=== PATIENT | female | born 1955 | race African-American/Black ===

== ENCOUNTER 2016-10-22 10:29 | Emergency (ER) | payer MEDICARE, MEDICAID ==
[2016-10-22] MEDS ORDERED: Morphine Sulfate 2 MG/ML SYRINGE ONE (10:51)
[2016-10-22] MEDS ORDERED: Promethazine HCl 25 MG/ML VIAL ONE (10:51)
[2016-10-22] MEDS ORDERED: cloNIDine HCl 0.1 MG TAB ONE (11:28)
== END 2016-10-22 11:46 | disposition home or self-care (01) ==
LOC: BURERS 10:29
DX: N64.4 Mastodynia (principal); C50.911 Malignant neoplasm of unspecified site of right female breast; I10 Essential (primary) hypertension; Z79.899 Other long term (current) drug therapy
CPT/HCPCS: 96372; J2270; J2550

== ENCOUNTER 2016-11-05 10:48 | Emergency (ER) | payer MEDICARE, MEDICAID ==
[2016-11-05] MEDS ORDERED: Nitroglycerin 2% Ointment 1 INCH/1 GM Packet ONE (11:02)
[2016-11-05] MEDS ORDERED: Nitroglycerin 0.4 MG TAB (25 Tab Bottle) ONE (11:02)
[2016-11-05] MEDS ORDERED: Ondansetron HCl/PF 4 MG/2 ML Vial ONE (11:02)
[2016-11-05] MEDS ORDERED: Metoprolol Tartrate 5 MG/5 ML VIAL ONE ×3 (11:12→12:17)
[2016-11-05 11:29] LABS: ALT (SGPT) 40 U/L (0-55); AST (SGOT) 31 U/L (5-34); Alkaline Phosphatase 125 U/L (40-150); Anion Gap 14 mmol/L (10-20); BUN (Urea Nitrogen) 14 mg/dL (9.8-20.1); Bilirubin, Total 0.9 mg/dL (0.2-1.2); Calc. Creatinine Clearance 0 mL/min (70-130); Calcium 9.2 mg/dL (7.8-10.44); Carbon Dioxide 26 mmol/L (23-31); Chloride 106 mmol/L (98-107); Estimated GFR-MDRD 58; Globulin 3.4 g/dL (2.4-3.5); Lipase 13 U/L (8-78); Protein, Total 7.2 g/dL (5.8-8.1)
[2016-11-05 11:30] LABS: Troponin I 0.011 ng/mL (< 0.028)
[2016-11-05 11:34] LABS: Mean Platelet Volume 7.6 fL (7.4-10.4); Red Blood Cell (RBC) Count 4.98 mill/uL (4.20-5.40); White Blood Cell (WBC) Count 11.3 thou/uL (4.8-10.8)
[2016-11-05 11:45] LABS: Neutrophil 43 % (42-75)
[2016-11-05] MEDS ORDERED: Morphine Sulfate 2 MG/ML SYRINGE ONE (11:53)
[2016-11-05] MEDS ORDERED: Famotidine In NaCl 20 mg/50 ml Premix Bag ONE (11:53)
[2016-11-05] MEDS ORDERED: cloNIDine HCl 0.1 MG TAB ONE (12:13)
[2016-11-05] MEDS ORDERED: Potassium Chloride 20 MEQ TAB ONE (12:13)
--- NOTE | 2016-11-05 19:44 | RAD ---
PORTABLE CHEST 11/05/16 An AP portable film at 1105 is compared with a 01/14/13 study done at [facility]. The heart is mildly enlarged but no more so than before. There is no vascular congestion, edema or p leural effusion. No focal pulmonary infiltrate was seen. The trachea is midline. IMPRESSION: Mild cardiomegaly but no acute findings. POS: HOME
== END 2016-11-05 12:36 | disposition short-term general hospital (02) ==
LOC: BURERS 10:48
DX: I20.0 Unstable angina (principal); I10 Essential (primary) hypertension; Z79.899 Other long term (current) drug therapy
CPT/HCPCS: 71010; 80053; 82553; 83690; 83880; 84484; 85025; 93005; 94760; 96361; 96365; 96375; 96376; J2270; J2405

== ENCOUNTER 2017-02-03 10:31 | Emergency (ER) | payer MEDICARE, MEDICAID | END 2017-02-03 11:17 | disposition home or self-care (01) | LOC: BURERS 10:31 | DX: N64.4 Mastodynia (principal); I10 Essential (primary) hypertension; F32.9 Major depressive disorder, single episode, unspecified; Z79.899 Other long term (current) drug therapy ==

== ENCOUNTER 2018-02-28 11:19 | Emergency (ER) | payer MEDICAID, MEDICARE | END 2018-02-28 11:51 | disposition home or self-care (01) | LOC: BURERS 11:19 | DX: M25.562 Pain in left knee (principal); M25.561 Pain in right knee; I10 Essential (primary) hypertension; Z85.3 Personal history of malignant neoplasm of breast; Z79.82 Long term (current) use of aspirin; Z79.899 Other long term (current) drug therapy | CPT/HCPCS: 99283 ==

== ENCOUNTER 2019-02-27 13:29 | Emergency (ER) | payer MEDICARE, MEDICAID ==
--- NOTE | 2019-02-27 17:11 | RAD ---
LEFT KNEE FOUR VIEWS: 02/27/19 No fracture or joint effusion was seen. There is slight medial joint space narrowing and osteophytes present. More prominent osteophytes are seen in the patellofemoral joint. IMPRESSION: Osteoarthritis. No acute traumatic findings. POS: HOME
== END 2019-02-27 14:30 | disposition home or self-care (01) ==
LOC: BURERS 13:29
DX: S80.212A Abrasion, left knee, initial encounter (principal); I10 Essential (primary) hypertension; F32.9 Major depressive disorder, single episode, unspecified; Z79.82 Long term (current) use of aspirin; Z86.73 Personal history of transient ischemic attack (TIA), and cerebral infarction without residual deficits; Z79.899 Other long term (current) drug therapy; Z79.891 Long term (current) use of opiate analgesic; W19.XXXA Unspecified fall, initial encounter

== ENCOUNTER 2019-05-29 12:38 | Emergency (ER) | payer MEDICARE, MEDICAID ==
[2019-05-29] MEDS ORDERED: Doxepin HCl 25 MG CAP ONE (13:14)
[2019-05-29 13:25] LABS: ALT (SGPT) 18 U/L (8-55); AST (SGOT) 18 U/L (5-34); Alkaline Phosphatase 120 U/L (40-150); Anion Gap 13 mmol/L (10-20); BUN (Urea Nitrogen) 10 mg/dL (9.8-20.1); Bilirubin, Total 0.9 mg/dL (0.2-1.2); Calc. Creatinine Clearance 0 mL/min (70-130); Calcium 9.3 mg/dL (7.8-10.44); Carbon Dioxide 26 mmol/L (23-31); Chloride 107 mmol/L (98-107); Estimated GFR-MDRD 44; Globulin 2.9 g/dL (2.4-3.5); Glucose 146 mg/dL (80-115); Hemoglobin 13.1 g/dL (12.0-16.0); MDiff Complete? YES; Mean Corpuscular HGB CONC 32.1 g/dL (32.0-36.0); Mean Corpuscular Hemoglobin 27.1 pg (27.0-31.0); Mean Corpuscular Volume 84.6 fL (78.0-98.0); Platelet Count 224 thou/uL (130-400); Protein, Total 6.9 g/dL (6.0-8.3); RBC Distribution Width 15.4 % (11.5-14.5); Red Blood Cell (RBC) Count 4.82 mill/uL (4.20-5.40); Sodium 143 mmol/L (136-145)
[2019-05-29 13:26] LABS: Band 1 % (5-11); Eosinophils 1 % (0-10); Lymphocytes 67 % (21-51); Monocytes 2 % (0-10); Neutrophil 29 % (42-75)
[2019-05-29 13:27] LABS: White Blood Cell (WBC) Count 18.1 thou/uL (4.8-10.8)
[2019-05-29] MEDS ORDERED: Potassium Chloride 20 MEQ TAB ONE (13:36)
== END 2019-05-29 13:39 | disposition home or self-care (01) ==
LOC: BURERS 12:38
DX: L25.9 Unspecified contact dermatitis, unspecified cause (principal); E87.6 Hypokalemia; I10 Essential (primary) hypertension; F32.9 Major depressive disorder, single episode, unspecified; Z86.73 Personal history of transient ischemic attack (TIA), and cerebral infarction without residual deficits; Z79.899 Other long term (current) drug therapy
CPT/HCPCS: 36415; 80053; 85025; 99283

== ENCOUNTER 2019-06-07 17:16 | Emergency (ER) | payer MEDICARE, MEDICAID ==
--- NOTE | 2019-06-07 21:00 | RAD ---
RIGHT ANKLE THREE VIEWS: 06/07/19 No acute fracture was seen. The ankle mortise appears intact. A calcaneal spur is present. There is some ossification and irregularity at the insertion of the Achilles tendon. IMPRESSION: No acute findings. POS: HOME
== END 2019-06-07 19:05 | disposition home or self-care (01) ==
LOC: BURERS 17:16
DX: S90.31XA Contusion of right foot, initial encounter (principal); I10 Essential (primary) hypertension; Z85.59 Personal history of malignant neoplasm of other urinary tract organ; Z86.73 Personal history of transient ischemic attack (TIA), and cerebral infarction without residual deficits; W22.8XXA Striking against or struck by other objects, initial encounter

== ENCOUNTER 2019-07-28 10:28 | Emergency (ER) | payer MEDICARE, MEDICAID ==
[2019-07-28] MEDS ORDERED: Nitroglycerin 0.4 MG TAB 1 EACH ONE (10:53)
[2019-07-28] MEDS ORDERED: Metoprolol Tartrate 5 MG/5 ML VIAL ONE (10:53)
[2019-07-28] MEDS ORDERED: Aspirin Chewable 81 MG TAB ONE (10:53)
[2019-07-28 11:06] LABS: Hemoglobin 13.9 g/dL (12.0-16.0); Mean Corpuscular Hemoglobin 27.5 pg (27.0-31.0); Mean Corpuscular Volume 85.9 fL (78.0-98.0); Mean Platelet Volume 7.8 fL (7.4-10.4); Platelet Count 202 thou/uL (130-400); RBC Distribution Width 15.2 % (11.5-14.5); Red Blood Cell (RBC) Count 5.04 mill/uL (4.20-5.40); White Blood Cell (WBC) Count 21.2 thou/uL (4.8-10.8)
[2019-07-28 11:14] LABS: ALT (SGPT) 52 U/L (8-55); AST (SGOT) 29 U/L (5-34); Albumin 4.3 g/dL (3.4-4.8); Alkaline Phosphatase 168 U/L (40-110); Anion Gap 16 mmol/L (10-20); BUN (Urea Nitrogen) 13 mg/dL (9.8-20.1); Bilirubin, Total 0.8 mg/dL (0.2-1.2); Calc. Creatinine Clearance 0 mL/min (70-130); Calcium 9.5 mg/dL (7.8-10.44); Carbon Dioxide 26 mmol/L (23-31); Chloride 107 mmol/L (98-107); Estimated GFR-MDRD 59; Globulin 3.1 g/dL (2.4-3.5); Glucose 100 mg/dL (80-115); Lipase 12 U/L (8-78); Potassium 3.3 mmol/L (3.5-5.1); Protein, Total 7.4 g/dL (6.0-8.3); Sodium 146 mmol/L (136-145)
[2019-07-28] MEDS ORDERED: Nitroglycerin 50 MG/250 ML BOT 250 ML ONE (11:19)
[2019-07-28 11:20] LABS: Band 2 % (5-11); Eosinophils 1 % (0-10); Lymphocytes 43 % (21-51); MDiff Complete? YES; Monocytes 17 % (0-10); Neutrophil 20 % (42-75); Reactive Lymphocytes 16 % (0-10)
[2019-07-28 11:39] LABS: Bilirubin Negative (Negative); Blood, Urine Negative (Negative); Clarity Slightly Cloudy (Clear); Glucose, Urine (Dipstick) Negative (Negative); Leukocyte Negative (Negative); Nitrite Negative (Negative); Protein, Urine (Dipstick) Negative (Neg-Trace)
[2019-07-28] MEDS ORDERED: Furosemide 40 MG/4 ML VIAL ONE (11:47)
--- NOTE | 2019-07-28 15:54 | RAD ---
PORTABLE CHEST: 07/28/19 An AP portable film at 1053 is compared with a 12/16/17 study. The heart is borderline in size. There appears to be some mild edema and congestion of vessels. There are probably some small pleural effusions. The trachea is midline. IMPRESSION: Mild congestion and edema. POS: HOME
== END 2019-07-28 13:40 | disposition short-term general hospital (02) ==
LOC: BURERS 10:28
DX: I10 Essential (primary) hypertension (principal); J81.1 Chronic pulmonary edema; F32.9 Major depressive disorder, single episode, unspecified; Z79.82 Long term (current) use of aspirin; Z79.899 Other long term (current) drug therapy; Z86.73 Personal history of transient ischemic attack (TIA), and cerebral infarction without residual deficits; Z85.3 Personal history of malignant neoplasm of breast
CPT/HCPCS: 36415; 71045; 80053; 81003; 83605; 83690; 83880; 84484; 85025; 87040; 93005; 94760; 96365; 96375; 96376; J1940

== ENCOUNTER 2019-10-20 10:10 | Emergency (ER) | payer MEDICARE, MEDICAID ==
[2019-10-20 11:37] LABS: Bilirubin Negative (Negative); Blood, Urine Negative (Negative); Clarity Clear (Clear); Glucose, Urine (Dipstick) Negative (Negative); Leukocyte Negative (Negative); Nitrite Negative (Negative); Protein, Urine (Dipstick) Negative (Neg-Trace)
--- NOTE | 2019-10-20 23:50 | CT ---
CT OF THE BRAIN WITHOUT CONTRAST: 10/20/[address] of the brain was done for evaluation following trauma. The ventricles are normal in size an d show no shift. No intracranial bleeding or extra-axial hematoma was seen. A patchy low density area in the right frontal lobe is most likely chronic ischemic change as it was seen on a prior MRI. It i s certainly not recent. No masses, edema or definite acute stroke was found. IMPRESSION: 1. No acute intracranial findings. 2. Old ischemic changes in the right frontal lobe. POS: HOME
== END 2019-10-20 11:43 | disposition home or self-care (01) ==
LOC: BURERS 10:10
DX: G31.9 Degenerative disease of nervous system, unspecified (principal); I10 Essential (primary) hypertension; Z86.73 Personal history of transient ischemic attack (TIA), and cerebral infarction without residual deficits; F41.9 Anxiety disorder, unspecified; F32.9 Major depressive disorder, single episode, unspecified; Z79.899 Other long term (current) drug therapy; Z79.02 Long term (current) use of antithrombotics/antiplatelets; W19.XXXA Unspecified fall, initial encounter
CPT/HCPCS: 70450; 81003

== ENCOUNTER 2020-04-19 13:00 | Emergency (ER) | payer MEDICARE, MEDICAID | END 2020-04-19 13:57 | disposition home or self-care (01) | LOC: BURERS 13:00 | DX: I10 Essential (primary) hypertension (principal); F41.9 Anxiety disorder, unspecified; C91.10 Chronic lymphocytic leukemia of B-cell type not having achieved remission; F32.9 Major depressive disorder, single episode, unspecified; Z86.73 Personal history of transient ischemic attack (TIA), and cerebral infarction without residual deficits; Z79.899 Other long term (current) drug therapy | CPT/HCPCS: 99283 ==

== ENCOUNTER 2020-05-09 10:11 | Emergency (ER) | payer MEDICARE, MEDICAID ==
[2020-05-09 11:04] LABS: Bilirubin Negative (Negative); Blood, Urine Negative (Negative); Clarity Clear (Clear); Glucose, Urine (Dipstick) Negative (Negative); Ketone, Urine Negative (Negative); Leukocyte Negative (Negative); Nitrite Negative (Negative); Protein, Urine (Dipstick) Negative (Neg-Trace); Specific Gravity, Urine 1.015 (1.005-1.030)
--- NOTE | 2020-05-09 13:15 | RAD ---
PORTABLE CHEST: Date: 05/09/2020 An AP portable film at 1112 hours is compared with an 07/28/2019 study. The heart is borderline in size, but no different than before. There is no vascular congestion, edema , or pleural effusion. The lungs are clear and the trachea is midline. IMPRESSION: No acute thoracic findings. POS: HOME
== END 2020-05-09 11:32 | disposition home or self-care (01) ==
LOC: BURERS 10:11
DX: R07.89 Other chest pain (principal); I10 Essential (primary) hypertension; F41.9 Anxiety disorder, unspecified; F32.9 Major depressive disorder, single episode, unspecified; Z86.73 Personal history of transient ischemic attack (TIA), and cerebral infarction without residual deficits; Z79.899 Other long term (current) drug therapy
CPT/HCPCS: 71045; 81003

== ENCOUNTER 2020-12-03 15:19 | Emergency (ER) | payer MEDICARE, MEDICAID ==
[2020-12-03 16:07] LABS: Hemoglobin 10.7 g/dL (12.0-16.0); Mean Corpuscular HGB CONC 31.8 g/dL (32.0-36.0); Mean Corpuscular Hemoglobin 28.2 pg (27.0-31.0); Mean Corpuscular Volume 88.6 fL (78.0-98.0); Mean Platelet Volume 7.8 fL (7.4-10.4); Platelet Count 148 thou/uL (130-400); RBC Distribution Width 18.5 % (11.5-14.5); Red Blood Cell (RBC) Count 3.81 mill/uL (4.20-5.40); White Blood Cell (WBC) Count 73.7 thou/uL (4.8-10.8)
[2020-12-03 16:24] LABS: ALT (SGPT) 13 U/L (8-55); AST (SGOT) 12 U/L (5-34); Albumin 3.8 g/dL (3.4-4.8); Alkaline Phosphatase 123 U/L (40-110); Anion Gap 15 mmol/L (10-20); BUN (Urea Nitrogen) 20 mg/dL (9.8-20.1); Bilirubin, Total 0.6 mg/dL (0.2-1.2); Calc. Creatinine Clearance 0 mL/min (70-130); Carbon Dioxide 25 mmol/L (23-31); Chloride 108 mmol/L (98-107); Globulin 2.9 g/dL (2.4-3.5); Glucose 107 mg/dL (80-115); Potassium 4.3 mmol/L (3.5-5.1); Protein, Total 6.7 g/dL (5.8-8.1); Sodium 144 mmol/L (136-145)
[2020-12-03 16:52] LABS: MDiff Complete? YES; Manual Diff?? YES
[2020-12-03 16:53] LABS: Band 1 % (5-11); Eosinophils 2 % (0-10); Lymphocytes 67 % (21-51); Monocytes 5 % (0-10); Neutrophil 9 % (42-75)
[2020-12-03 16:54] LABS: Reflex for Review?? YES
[2020-12-03] MEDS ORDERED: cefTRIAXone\\ROCEPHIN 2 GM VIAL ONE (16:58)
== END 2020-12-03 17:03 | disposition home or self-care (01) ==
LOC: BURERS 15:19
DX: J06.9 Acute upper respiratory infection, unspecified (principal); J45.909 Unspecified asthma, uncomplicated; C91.10 Chronic lymphocytic leukemia of B-cell type not having achieved remission; I10 Essential (primary) hypertension; Z79.899 Other long term (current) drug therapy
CPT/HCPCS: 36415; 71045; 80053; 83880; 84484; 85025; 85060; 87040; 93005; 94640; 94760; 96374; J0696; J7620

== ENCOUNTER 2020-12-30 15:42 | Emergency (ER) | payer MEDICARE, MEDICAID ==
[2020-12-30 16:35] LABS: Bilirubin Negative (Negative); Blood, Urine Negative (Negative); Clarity Clear (Clear); Glucose, Urine (Dipstick) Negative (Negative); Ketone, Urine Negative (Negative); Leukocyte Negative (Negative); Nitrite Negative (Negative); Protein, Urine (Dipstick) Negative (Neg-Trace); Specific Gravity, Urine 1.015 (1.005-1.030)
[2020-12-30] MEDS ORDERED: cloNIDine 0.1 MG TAB ONE (17:03)
[2020-12-30] MEDS ORDERED: Acetaminophen 500 MG TAB ONE (17:03)
== END 2020-12-30 17:13 | disposition home or self-care (01) ==
LOC: BURERS 15:42
DX: I10 Essential (primary) hypertension (principal); K59.00 Constipation, unspecified; Z86.73 Personal history of transient ischemic attack (TIA), and cerebral infarction without residual deficits; Z79.899 Other long term (current) drug therapy
CPT/HCPCS: 81003; 99284

== ENCOUNTER 2021-01-31 07:52 | Emergency (ER) | payer MEDICARE, MEDICAID | END 2021-01-31 08:11 | disposition left against medical advice (07) | LOC: BURERS 07:52 | DX: Z53.21 Procedure and treatment not carried out due to patient leaving prior to being seen by health care provider (principal) ==

== ENCOUNTER 2021-02-09 08:24 | Emergency (ER) | payer MEDICARE, MEDICAID ==
[2021-02-09] MEDS ORDERED: methylPREDNISolone Sod Succ/PF 125 MG/2 ML VIAL ONE (08:48)
== END 2021-02-09 09:00 | disposition home or self-care (01) ==
LOC: BURERS 08:24
DX: M54.42 Lumbago with sciatica, left side (principal); M54.41 Lumbago with sciatica, right side; I10 Essential (primary) hypertension; M79.7 Fibromyalgia
CPT/HCPCS: 96372; 99283; J2930

== ENCOUNTER 2021-03-22 08:23 | Emergency (ER) | payer MEDICARE, MEDICAID ==
[2021-03-22] MEDS ORDERED: HYDROcodone/Acetaminophen 10/325 mg Tablet ONE (09:04)
[2021-03-22] MEDS ORDERED: predniSONE 20 MG TAB ONE (09:04)
== END 2021-03-22 09:18 | disposition home or self-care (01) ==
LOC: BURERS 08:23
DX: M17.12 Unilateral primary osteoarthritis, left knee (principal); H00.012 Hordeolum externum right lower eyelid; I10 Essential (primary) hypertension; Z79.899 Other long term (current) drug therapy
CPT/HCPCS: J7512

== ENCOUNTER 2021-05-29 11:20 | Emergency (ER) | payer MEDICARE, MEDICAID ==
[2021-05-29 14:08] LABS: Bilirubin Negative (Negative); Blood, Urine Negative (Negative); Clarity Clear (Clear); Glucose, Urine (Dipstick) Negative (Negative); Ketone, Urine Negative (Negative); Leukocyte Trace (Negative); Nitrite Negative (Negative); Protein, Urine (Dipstick) Negative (Neg-Trace)
[2021-05-29 14:15] LABS: Bacteria/HPF Rare-Few HPF (None Seen); RBC/HPF None Seen HPF (0-3); WBC/HPF 0-3 HPF (0-3)
== END 2021-05-29 14:34 | disposition left against medical advice (07) ==
LOC: BURERS 11:20
DX: I10 Essential (primary) hypertension (principal); R47.81 Slurred speech; R29.700 NIHSS score 0; Z85.6 Personal history of leukemia
CPT/HCPCS: 70450; 71046; 81003; 81015; 93005

== ENCOUNTER 2021-06-01 16:54 | Emergency (ER) | payer MEDICARE, MEDICAID ==
[2021-06-01] MEDS ORDERED: Ondansetron ODT 4 MG TAB ONE (17:38)
[2021-06-01] MEDS ORDERED: Morphine 4 MG/ML VIAL ONE (17:38)
[2021-06-01 18:35] LABS: Hemoglobin 12.8 g/dL (12.0-16.0); Mean Corpuscular HGB CONC 32.3 g/dL (32.0-36.0); Mean Corpuscular Hemoglobin 24.7 pg (27.0-31.0); Mean Corpuscular Volume 76.5 fL (78.0-98.0); Mean Platelet Volume 8.9 fL (7.4-10.4); Platelet Count 209 thou/uL (130-400); RBC Distribution Width 17.8 % (11.5-14.5); Red Blood Cell (RBC) Count 5.17 mill/uL (4.20-5.40); White Blood Cell (WBC) Count 23.2 thou/uL (4.8-10.8)
[2021-06-01 18:50] LABS: ALT (SGPT) 15 U/L (8-55); AST (SGOT) 11 U/L (5-34); Albumin 3.7 g/dL (3.4-4.8); Alkaline Phosphatase 111 U/L (40-110); Anion Gap 12 mmol/L (10-20); BUN (Urea Nitrogen) 13 mg/dL (9.8-20.1); Bilirubin, Total 0.4 mg/dL (0.2-1.2); CK (CPK) 97 U/L (29-168); Calc. Creatinine Clearance 0 mL/min (70-130); Calcium 9.3 mg/dL (7.8-10.44); Carbon Dioxide 28 mmol/L (23-31); Chloride 109 mmol/L (98-107); Globulin 3.1 g/dL (2.4-3.5); Glucose 104 mg/dL (80-115); Potassium 3.7 mmol/L (3.5-5.1); Protein, Total 6.8 g/dL (5.8-8.1); Sodium 145 mmol/L (136-145)
[2021-06-01] MEDS ORDERED: cloNIDine 0.1 MG TAB ONE (19:07)
[2021-06-01 19:13] LABS: Eosinophils 1 % (0-10); Lymphocytes 43 % (21-51); MDiff Complete? YES; Monocytes 9 % (0-10); Neutrophil 24 % (42-75); Reactive Lymphocytes 23 % (0-10)
== END 2021-06-01 20:44 | disposition home or self-care (01) ==
LOC: BURERS 16:54
DX: S09.90XA Unspecified injury of head, initial encounter (principal); M54.6 Pain in thoracic spine; M54.5 Low back pain; I10 Essential (primary) hypertension; W07.XXXA Fall from chair, initial encounter
CPT/HCPCS: 36415; 70450; 72125; 72128; 72131; 80053; 82550; 85025; 96372; J2270; Q0162

== ENCOUNTER 2021-06-04 16:04 | Emergency (ER) | payer MEDICARE, MEDICAID ==
[2021-06-04] MEDS ORDERED: Lidocaine 2% 20 ml MDV ONE (16:15)
[2021-06-04] MEDS ORDERED: Bacitracin 1 PK ONE (16:22)
[2021-06-04] MEDS ORDERED: Cephalexin 250 MG CAP ONE (16:24)
== END 2021-06-04 16:40 | disposition home or self-care (01) ==
LOC: BURERS 16:04
DX: S60.452A Superficial foreign body of right middle finger, initial encounter (principal); I10 Essential (primary) hypertension; W45.8XXA Other foreign body or object entering through skin, initial encounter
CPT/HCPCS: 99283

== ENCOUNTER 2021-06-28 11:15 | Emergency (ER) | payer MEDICARE, MEDICAID ==
[2021-06-28] MEDS ORDERED: Lidocaine Viscous Sol 2% 15 ml UD Cup ONE (11:35)
[2021-06-28] MEDS ORDERED: Mag-Al Plus 1200 MG/1200 MG/120 MG/30 ML UDCUP ONE (11:35)
[2021-06-28 12:06] LABS: Hemoglobin 13.1 g/dL (12.0-16.0); Mean Corpuscular HGB CONC 31.5 g/dL (32.0-36.0); Mean Corpuscular Hemoglobin 24.1 pg (27.0-31.0); Mean Corpuscular Volume 76.7 fL (78.0-98.0); Mean Platelet Volume 9.3 fL (7.4-10.4); Platelet Count 274 thou/uL (130-400); RBC Distribution Width 17.6 % (11.5-14.5); Red Blood Cell (RBC) Count 5.42 mill/uL (4.20-5.40); White Blood Cell (WBC) Count 20.9 thou/uL (4.8-10.8)
[2021-06-28 12:10] LABS: ALT (SGPT) 12 U/L (8-55); AST (SGOT) 10 U/L (5-34); Albumin 3.8 g/dL (3.4-4.8); Alkaline Phosphatase 114 U/L (40-110); Anion Gap 12 mmol/L (10-20); BUN (Urea Nitrogen) 17 mg/dL (9.8-20.1); Bilirubin, Total 0.8 mg/dL (0.2-1.2); Calc. Creatinine Clearance 0 mL/min (70-130); Carbon Dioxide 27 mmol/L (23-31); Chloride 106 mmol/L (98-107); Glucose 92 mg/dL (80-115); Lipase 17 U/L (8-78); Potassium 4.1 mmol/L (3.5-5.1); Protein, Total 6.8 g/dL (5.8-8.1); Sodium 141 mmol/L (136-145)
[2021-06-28 12:13] LABS: Band 2 % (5-11); Basophilic Stippling SLIGHT = 1-2 cells (100X) (None Seen); Hypochromia SLIGHT = 6-15 cells (100X) (0-5/hpf); Lymphocytes 18 % (21-51); MDiff Complete? YES; Macrocytosis SLIGHT = 6-15 cells (100X) (0-5/hpf); Monocytes 5 % (0-10); Neutrophil 40 % (42-75); Reactive Lymphocytes 35 % (0-10)
[2021-06-28] MEDS ORDERED: Famotidine In NaCl 20 mg/50 ml Premix Bag ONE (12:27)
== END 2021-06-28 12:49 | disposition home or self-care (01) ==
LOC: BURERS 11:15
DX: K21.00 Gastro-esophageal reflux disease with esophagitis, without bleeding (principal); C91.10 Chronic lymphocytic leukemia of B-cell type not having achieved remission; I10 Essential (primary) hypertension
CPT/HCPCS: 71045; 80053; 83690; 83880; 84484; 85025; 93005; 96374

== ENCOUNTER 2021-09-03 12:34 | Emergency (ER) | payer MEDICARE, MEDICAID | END 2021-09-03 14:00 | disposition home or self-care (01) | LOC: BURERS 12:34 | DX: M25.562 Pain in left knee (principal); I10 Essential (primary) hypertension; Z79.899 Other long term (current) drug therapy ==

== ENCOUNTER 2022-01-07 07:37 | Emergency (ER) | payer OTHER, MEDICAID ==
[2022-01-07] MEDS ORDERED: traMADol HCl 50 MG TAB ONE (08:43)
[2022-01-07] MEDS ORDERED: predniSONE 20 MG TAB ONE (08:43)
== END 2022-01-07 08:53 | disposition home or self-care (01) ==
LOC: BURERS 07:37
DX: M17.12 Unilateral primary osteoarthritis, left knee (principal); I10 Essential (primary) hypertension; Z86.73 Personal history of transient ischemic attack (TIA), and cerebral infarction without residual deficits; Z95.5 Presence of coronary angioplasty implant and graft; Z85.3 Personal history of malignant neoplasm of breast
CPT/HCPCS: J7512

== ENCOUNTER 2022-03-29 10:32 | Emergency (ER) | payer OTHER, MEDICAID ==
[2022-03-29] MEDS ORDERED: Iopamidol 370 76% 100 ML VIAL FS ONE (10:33)
[2022-03-29 10:52] LABS: Hemoglobin 13.7 g/dL (12.0-16.0); Mean Corpuscular HGB CONC 34.6 g/dL (32.0-36.0); Mean Corpuscular Hemoglobin 28.7 pg (27.0-31.0); Mean Corpuscular Volume 82.8 fL (78.0-98.0); Mean Platelet Volume 8.1 fL (7.4-10.4); Platelet Count 134 thou/uL (130-400); RBC Distribution Width 17.3 % (11.5-14.5); Red Blood Cell (RBC) Count 4.77 mill/uL (4.20-5.40); White Blood Cell (WBC) Count 23.3 thou/uL (4.8-10.8)
[2022-03-29 11:01] LABS: Prothrombin Time 13.5 sec (12.0-14.7)
[2022-03-29 11:02] LABS: PTT 25.6 sec (22.9-36.1)
[2022-03-29 11:06] LABS: ALT (SGPT) 28 U/L (8-55); AST (SGOT) 19 U/L (5-34); Alkaline Phosphatase 123 U/L (40-110); Anion Gap 14 mmol/L (10-20); BUN (Urea Nitrogen) 17 mg/dL (9.8-20.1); Bilirubin, Total 0.9 mg/dL (0.2-1.2); CK (CPK) 92 U/L (29-168); Calc. Creatinine Clearance 0 mL/min (70-130); Calcium 9.6 mg/dL (7.8-10.44); Carbon Dioxide 26 mmol/L (23-31); Chloride 107 mmol/L (98-107); Estimated GFR 34; Globulin 2.6 g/dL (2.4-3.5); Glucose 102 mg/dL (80-115); Potassium 4.2 mmol/L (3.5-5.1); Protein, Total 6.6 g/dL (5.8-8.1); Sodium 143 mmol/L (136-145)
[2022-03-29 11:14] LABS: Anisocytosis SLIGHT = 6-15 cells (100X) (0-5/hpf); Lymphocytes 83 % (21-51); MDiff Complete? YES; Monocytes 4 % (0-10); Neutrophil 13 % (42-75); Platelet Morphology Comment Appears Adequate
[2022-03-29] MEDS ORDERED: Ondansetron PF 4 MG/2 ML Vial ONE (11:21)
[2022-03-29] MEDS ORDERED: Aspirin Chewable 81 MG TAB ONE (11:25)
[2022-03-29 11:31] LABS: CKMB 0.9 ng/mL (0-6.6)
[2022-03-29 12:07] LABS: Amphetamine Not Detected (NotDetected); Barbiturates Screen Not Detected (NotDetected); Benzodiazepine Screen Not Detected (NotDetected); Cocaine Metabolite Screen Not Detected (NotDetected); Medtox Control Line Valid? VALID (VALID); Methadone Not Detected (NotDetected); Methamphetamine Not Detected (NotDetected); Opiate Screen Not Detected (NotDetected); Oxycodone Screen Not Detected (NotDetected); Phencyclidine (PCP) Not Detected (NotDetected); THC/Cannabinoid Screen Not Detected (NotDetected); Tricyclic Screen Not Detected (NotDetected)
[2022-03-29 12:11] LABS: Bilirubin Negative (Negative); Blood, Urine Negative (Negative); Clarity Clear (Clear); Glucose, Urine (Dipstick) Negative (Negative); Ketone, Urine Negative (Negative); Leukocyte Negative (Negative); Nitrite Negative (Negative); Protein, Urine (Dipstick) 30 mg/dL (Neg-Trace); Specific Gravity, Urine 1.015 (1.005-1.030); Urobilinogen 0.2 mg/dL (Less than 2)
[2022-03-29 12:19] LABS: Bacteria/HPF Rare-Few HPF (None Seen); RBC/HPF None Seen HPF (0-3); Squamous Epithelial 0-3 HPF (0-3); WBC/HPF 0-3 HPF (0-3)
[2022-03-29 12:46] LABS: SARS-CoV-2 NAA Rapid Test Not Detected (NotDetected)
== END 2022-03-29 14:25 | disposition short-term general hospital (02) ==
LOC: BURERS 10:32
DX: R53.1 Weakness (principal); R29.703 NIHSS score 3; I10 Essential (primary) hypertension; Z20.822 Contact with and (suspected) exposure to COVID-19
CPT/HCPCS: 70450; 70496; 70498; 71045; 80053; 80306; 82550; 82553; 83605; 84484; 85025; 85610; 85730; 87040; 87086; 93005; 96374; 99285; U0002; 81003; 81015; J2405; Q9967

== ENCOUNTER 2022-07-09 12:49 | Emergency (ER) | payer OTHER, MEDICAID ==
[2022-07-09 14:21] LABS: Hemoglobin 11.2 g/dL (12.0-16.0); Mean Corpuscular Hemoglobin 30.6 pg (27.0-31.0); Mean Corpuscular Volume 92.8 fl (78.0-98.0); Mean Platelet Volume 7.5 fL (7.4-10.4); Platelet Count 96 thou/uL (130-400); Red Blood Cell (RBC) Count 3.66 mill/uL (4.20-5.40); White Blood Cell (WBC) Count 24.8 thou/uL (4.8-10.8)
[2022-07-09 14:36] LABS: ALT (SGPT) 25 U/L (8-55); AST (SGOT) 22 U/L (5-34); Alkaline Phosphatase 124 U/L (40-110); Anion Gap 14 mmol/L (10-20); BUN (Urea Nitrogen) 23 mg/dL (9.8-20.1); Bilirubin, Total 1.3 mg/dL (0.2-1.2); Calc. Creatinine Clearance 0 mL/min (70-130); Calcium 9.2 mg/dL (7.8-10.44); Carbon Dioxide 21 mmol/L (23-31); Chloride 112 mmol/L (98-107); Estimated GFR 31; Globulin 2.5 g/dL (2.4-3.5); Glucose 175 mg/dL (80-115); Lipase 28 U/L (8-78); Potassium 3.8 mmol/L (3.5-5.1); Protein, Total 6.5 g/dL (5.8-8.1); Sodium 143 mmol/L (136-145)
[2022-07-09 14:54] LABS: Bilirubin Negative (Negative); Blood, Urine Negative (Negative); Clarity Clear (Clear); Glucose, Urine (Dipstick) Negative (Negative); Ketone, Urine Negative (Negative); Leukocyte Negative (Negative); Nitrite Negative (Negative); Protein, Urine (Dipstick) Negative (Neg-Trace); Specific Gravity, Urine 1.015 (1.005-1.030); pH, Urine 5.5 (5.0-9.0)
[2022-07-09 15:12] LABS: Band 5 % (5-11); Lymphocytes 60 % (21-51); MDiff Complete? YES; Neutrophil 16 % (42-75); Platelet Morphology Comment Appears Decreased; Reactive Lymphocytes 19 % (0-10)
[2022-07-09] MEDS ORDERED: Doxycycline 100 MG CAP ONE (18:05)
[2022-07-09] MEDS ORDERED: predniSONE 20 MG TAB ONE (18:05)
== END 2022-07-09 19:00 | disposition home or self-care (01) ==
LOC: BURERS 12:49
DX: J22 Unspecified acute lower respiratory infection (principal); E86.0 Dehydration; I10 Essential (primary) hypertension
CPT/HCPCS: 71045; 80053; 81003; 83605; 83690; 83880; 84484; 85025; 87804; 93005; J7512; J7620

== ENCOUNTER 2022-09-02 14:21 | Emergency (ER) | payer OTHER, MEDICAID | END 2022-09-02 15:09 | disposition home or self-care (01) | LOC: BURERS 14:21 | DX: H92.03 Otalgia, bilateral (principal); I10 Essential (primary) hypertension | CPT/HCPCS: 99282 ==

== ENCOUNTER 2022-11-10 13:13 | Emergency (ER) | payer MEDICARE, MEDICAID ==
[~2022-11-10 13:13] MED LIST: Iopamidol 370 76% 100 ML VIAL ONE
[2022-11-10 14:01] LABS: ALT (SGPT) 18 U/L (8-55); AST (SGOT) 22 U/L (5-34); Albumin 4.1 g/dL (3.4-4.8); Alkaline Phosphatase 109 U/L (40-110); Anion Gap 11 mmol/L (10-20); BUN (Urea Nitrogen) 19 mg/dL (9.8-20.1); Calc. Creatinine Clearance 0 mL/min (70-130); Calcium 9.2 mg/dL (7.8-10.44); Carbon Dioxide 25 mmol/L (23-31); Chloride 112 mmol/L (98-107); Estimated GFR 36; Globulin 2.2 g/dL (2.4-3.5); Glucose 136 mg/dL (80-115); Potassium 3.7 mmol/L (3.5-5.1); Protein, Total 6.3 g/dL (5.8-8.1); Sodium 144 mmol/L (136-145)
[2022-11-10 14:02] LABS: CRP (Inflammatory) 0.69 mg/dL (= or < 0.5)
[2022-11-10 14:04] LABS: Hemoglobin 9.4 g/dL (12.0-16.0); Mean Corpuscular HGB CONC 33.8 g/dL (32.0-36.0); Mean Corpuscular Hemoglobin 30.5 pg (27.0-31.0); Mean Corpuscular Volume 90.2 fl (78.0-98.0); Mean Platelet Volume 8.9 fL (7.4-10.4); Platelet Count 81 10x3/uL (130-400); RBC Distribution Width 17.3 % (11.5-14.5); Red Blood Cell (RBC) Count 3.08 mill/uL (4.20-5.40)
[2022-11-10 14:08] LABS: Lipase 28 U/L (8-78); Magnesium 2.1 mg/dL (1.6-2.6)
[2022-11-10 14:23] LABS: Amphetamine Not Detected (NotDetected); Barbiturates Screen Not Detected (NotDetected); Benzodiazepine Screen Not Detected (NotDetected); Cocaine Metabolite Screen Not Detected (NotDetected); Medtox Control Line Valid? VALID (VALID); Methadone Not Detected (NotDetected); Methamphetamine Not Detected (NotDetected); Opiate Screen Not Detected (NotDetected); Oxycodone Screen Not Detected (NotDetected); Phencyclidine (PCP) Not Detected (NotDetected); THC/Cannabinoid Screen Not Detected (NotDetected); Tricyclic Screen Not Detected (NotDetected)
[2022-11-10 14:24] LABS: Bilirubin Negative (Negative); Blood, Urine Negative (Negative); Clarity Slightly Cloudy (Clear); Glucose, Urine (Dipstick) Negative (Negative); Ketone, Urine Negative (Negative); Leukocyte Small (Negative); Nitrite Negative (Negative); Protein, Urine (Dipstick) Negative (Neg-Trace); Specific Gravity, Urine 1.015 (1.005-1.030); pH, Urine 5.5 (5.0-9.0)
[2022-11-10] MEDS ORDERED: Ondansetron PF 4 MG/2 ML Vial ONE (14:24)
[2022-11-10 14:25] LABS: Bacteria/HPF 1+ HPF (None Seen); RBC/HPF None Seen HPF (0-3); Squamous Epithelial 0-3 HPF (0-3); Transitional Epithelial 0-3 HPF (None Seen)
[2022-11-10 14:31] LABS: Band 4 % (5-11); Eosinophils 1 % (0-10); Lymphocytes 56 % (21-51); MDiff Complete? YES; Monocytes 1 % (0-10); Myelocyte 1 % (0-0); Neutrophil 12 % (42-75); Nucleated RBC 1 % (0); Reactive Lymphocytes 1 % (0-10); Reflex for Review?? YES
[2022-11-10 14:38] LABS: White Blood Cell (WBC) Count 30.4 10x3/uL (4.8-10.8)
== END 2022-11-10 16:04 | disposition home or self-care (01) ==
LOC: BURERS 13:13
DX: J20.9 Acute bronchitis, unspecified (principal); C91.10 Chronic lymphocytic leukemia of B-cell type not having achieved remission; I10 Essential (primary) hypertension; Z86.73 Personal history of transient ischemic attack (TIA), and cerebral infarction without residual deficits
CPT/HCPCS: 71045; 71275; 80053; 80306; 81003; 81015; 82550; 83605; 83690; 83735; 83880; 84484; 85025; 85060; 85379; 86140; 87804; 93005; 96374; J2405; Q9967

== ENCOUNTER 2022-11-21 10:16 | Emergency (ER) | payer MEDICARE, MEDICAID ==
[2022-11-21 10:48] LABS: Bilirubin Negative (Negative); Blood, Urine Negative (Negative); Clarity Clear (Clear); Glucose, Urine (Dipstick) Negative (Negative); Ketone, Urine Negative (Negative); Leukocyte Trace (Negative); Nitrite Negative (Negative); Protein, Urine (Dipstick) Negative (Neg-Trace); Specific Gravity, Urine 1.015 (1.005-1.030)
[2022-11-21 10:50] LABS: RBC/HPF None Seen HPF (0-3); Squamous Epithelial 0-3 HPF (0-3); WBC/HPF 0-3 HPF (0-3)
[2022-11-21 10:51] LABS: Bacteria/HPF Rare-Few HPF (None Seen)
[2022-11-21] MEDS ORDERED: Ondansetron PF 4 MG/2 ML Vial ONE (11:03)
[2022-11-21] MEDS ORDERED: Fentanyl 100 MCG/2 ML VIAL ONE (11:03)
[2022-11-21 11:27] LABS: Hemoglobin 9.1 g/dL (12.0-16.0); Mean Corpuscular HGB CONC 33.3 g/dL (32.0-36.0); Mean Corpuscular Hemoglobin 30.7 pg (27.0-31.0); Mean Corpuscular Volume 92.2 fl (78.0-98.0); Red Blood Cell (RBC) Count 2.96 mill/uL (4.20-5.40); White Blood Cell (WBC) Count 28.1 10x3/uL (4.8-10.8)
[2022-11-21 11:28] LABS: Mean Platelet Volume 8.5 fL (7.4-10.4); Platelet Count 79 10x3/uL (130-400); RBC Distribution Width 18.6 % (11.5-14.5)
[2022-11-21 11:29] LABS: Manual Diff?? YES
[2022-11-21 11:30] LABS: Lymphocytes 86 % (21-51); MDiff Complete? YES; Neutrophil 8 % (42-75); Reactive Lymphocytes 3 % (0-10)
[2022-11-21 11:31] LABS: Anisocytosis SLIGHT = 6-15 cells (100X) (0-5/hpf); Monocytes 3 % (0-10); Ovalocytes SLIGHT = 2-5 cells (100X) (0-1/hpf); Poikilocytosis SLIGHT = 6-15 cells (100X) (0-5/hpf)
[2022-11-21 11:32] LABS: Platelet Morphology Comment Appears Decreased; Tear Drops SLIGHT = 2-5 cells (100X) (0-1/hpf)
[2022-11-21 11:35] LABS: ALT (SGPT) 18 U/L (8-55); AST (SGOT) 24 U/L (5-34); Alkaline Phosphatase 107 U/L (40-110); Anion Gap 13 mmol/L (10-20); BUN (Urea Nitrogen) 18 mg/dL (9.8-20.1); Bilirubin, Total 0.9 mg/dL (0.2-1.2); Calc. Creatinine Clearance 0 mL/min (70-130); Calcium 8.8 mg/dL (7.8-10.44); Carbon Dioxide 24 mmol/L (23-31); Chloride 111 mmol/L (98-107); Estimated GFR 37; Globulin 1.8 g/dL (2.4-3.5); Glucose 114 mg/dL (80-115); Potassium 4.4 mmol/L (3.5-5.1); Protein, Total 5.8 g/dL (5.8-8.1); Sodium 144 mmol/L (136-145)
[2022-11-21] MEDS ORDERED: Promethazine HCl 25 MG/ML VIAL ONE (12:02)
== END 2022-11-21 12:27 | disposition home or self-care (01) ==
LOC: BURERS 10:16
DX: I88.0 Nonspecific mesenteric lymphadenitis (principal); D72.829 Elevated white blood cell count, unspecified
CPT/HCPCS: 36415; 74176; 80053; 81003; 81015; 83605; 83880; 84484; 85025; 93005; 96372; 96374; 96375; J2405; J2550; J3010

== ENCOUNTER 2023-01-06 11:46 | Emergency (ER) | payer MEDICARE, MEDICAID | END 2023-01-06 13:34 | disposition home or self-care (01) | LOC: BURERS 11:46 | DX: T14.8XXA Other injury of unspecified body region, initial encounter (principal); M54.6 Pain in thoracic spine; M25.522 Pain in left elbow; I10 Essential (primary) hypertension; W19.XXXA Unspecified fall, initial encounter | CPT/HCPCS: 70450; 71046; 72072 ==